=== PATIENT | female | born 1995 | race Caucasian/White ===

== ENCOUNTER 2018-11-07 23:25 | Emergency (ER) | payer MEDICAID, OTHER ==
[~2018-11-07] VITALS: Ht 157.5 cm; Wt 83.5 kg
[~2018-11-07 23:25] MED LIST: IBUP-1542 PO
[2018-11-07 23:31] VITALS: Ht 157.5 cm; Wt 83.5 kg
--- NOTE | 2018-11-08 00:30 | ERD ---
ER Documentation Chief Complaint Chief Complaint abd/back pain x 2 days HPI The patient is a 23-year-old female, presenting to the ER because of lower back pain and left-sided abdominal pain for 2 days, associated with sore throat, d enies nasal congestion, cough, neck pain, chest pain, dyspnea, vomiting, dizzy, diarrhea. She does not smoke nor drink Past medical history: None Past surgical history: Appendectomy ROS All systems reviewed and are negative except as per history of present illness. Medications Home Meds Active Scripts Ibuprofen* (Motrin*) 600 Mg Tab, 600 MG PO Q6H PRN for PAIN AND OR ELEVATED TEMP, #30 TAB Prov:TRISTAN ELLINGTON MD 11/08/18 Cephalexin* (Keflex*) 500 Mg Capsule, 500 MG PO Q6, #40 CAP Prov:TRISTAN ELLINGTON MD 11/08/18 Ibuprofen* (Motrin*) 600 Mg Tab, 600 MG PO Q6, #20 TAB Prov:SARA YO PA-C 03/23/15 Allergies Allergies: Coded Allergies: No Known Allergy (Unverified , 07/28/14) PMhx/Soc History of Surgery: No Anesthesia Reaction: No Hx Neurological Disorder: No Hx Respiratory Disorders: No Hx Cardiac Disorders: No Hx Psychiatric Problems: No Hx Miscellaneous Medical Probl: No Hx Alcohol Use: No Hx Substance Use: No Hx Tobacco Use: No Physical Exam Vitals Vital Signs Date Temp Pulse Resp B/P (MAP) Pulse Ox O2 O2 Flow FiO2 Time Delivery Rate 11/08/18 89 14 112/69 99 Room Air 03:36 (83) 11/08/18 99.3 99 16 107/70 98 Room Air 01:12 (82) 11/07/18 102.4 100 20 122/64 98 23:31 (83) Physical Exam Const: No acute distress. Head: Atraumatic. Eyes: Normal Conjunctiva. ENT: Normal External Ears, Nose and Mouth. Neck: Full range of motion. No meningismus. Resp: Clear to auscultation bilaterally. Cardio: Regular rate and rhythm. Abd: Soft, non distended, normal bowel sounds, obese, diffuse abdomi nal tenderness, mild bilateral CVA tenderness Skin: No petechiae or rashes. Back: No midline or flank tenderness. Ext: No cyanosis, or edema. Neur: Awake and alert. No focal deficit Psych: Normal Mood and Affect. Result Diagram: 11/08/18 0059 11/08/18 0059 Results 24 hrs Laboratory Tests Test 11/08/18 00:36 11/08/18 00:38 11/08/18 00:59 11/08/18 02:30 Bedside Urine pH 6.0 (LAB) Bedside Urine Trace Protein (LAB) Bedside Urine Negative Glucose (UA) Bedside Urine 2+ Ketones (LAB) Bedside Urine 2+ Blood Bedside Urine Negative Nitrite (LAB) Bedside Urine 1+ Leukocyte Esteras e (L POC Beta HCG, NEGATIVE Qualitative White Blood Count 9.4 10^3/ul Red Blood Count 5.02 10^6/ul Hemoglobin 13.9 g/dl Hematocrit 43.3 % Mean Corpuscular 86.3 fl Volume Mean Corpuscular 27.7 pg Hemoglobin Mean Corpuscular 32.1 g/dl Hemoglobin Concen t Red Cell 13.8 % Distribution Width Platelet Count 257 10^3/UL Mean Platelet 10.8 fl Volume Immature 0.300 % Granulocytes % Neutrophils % 86.3 % Lymphocytes % 7.4 % Monocytes % 5.2 % Eosinophils % 0.6 % Basophils % 0.2 % Nucleated Red 0.0 /100WBC Blood Cells % Immature 0.030 10^3/ul Granulocytes # Neutrophils # 8.1 10^3/ul Lymphocytes # 0.7 10^3/ul Monocytes # 0.5 10^3/ul Eosinophils # 0.1 10^3/ul Basophils # 0.0 10^3/ul Nucleated Red 0.0 10^3/ul Blood Cells # Prothrombin Time 13.6 Sec Prothrombin Time 1.1 Ratio INR International 1.03 Normalized Ratio Activated 33.4 Sec Partial Thrombopl ast Time Sodium Level 141 mmol/L Potassium Level 3.9 mmol/L Chloride Level 100 mmol/L Carbon Dioxide 25 mmol/L Level Anion Gap 16 Blood Urea 16 mg/dl Nitrogen Creatinine 0.67 mg/dl Est Glomerular > 60 mL/min Filtrat Rate mL/min Glucose Level 102 mg/dl Lactic Acid Level 1.1 mmol/L Calcium Level 9.9 mg/dl Total Bilirubin 0.4 mg/dl Direct Bilirubin 0.00 mg/dl Indirect 0.4 mg/dl Bilirubin Aspartate Amino 24 IU/L Transf (AST/SGOT) Alanine 13 IU/L Aminotransferase (ALT/SGPT) Alkaline 84 IU/L Phosphatase Troponin I < 0.012 ng/ml Total Protein 9.0 g/dl Albumin 5.2 g/dl Globulin 3.80 g/dl Albumin/Globulin 1.36 Ratio Urine Color YELLOW Urine Clarity SLIGHTLY CLOUDY Urine pH 6.0 Urine Specific 1.016 Sadler Urine Ketones 1+ mg/dL Urine Nitrite NEGATIVE mg/dL Urine Bilirubin NEGATIVE mg/dL Urine NEGATIVE mg/dL Urobilinogen Urine Leukocyte 2+ Perez/ul Esterase Urine Microscopic 2 /HPF RBC Urine Microscopic 4 /HPF WBC Urine Squamous FEW /HPF Epithelial Cells Urine Hemoglobin 2+ mg/dL Urine Glucose NEGATIVE mg/dL Urine Total NEGATIVE mg/dl Protein Current Medications Medications Dose Sig/Regina Start Time Status Last (Trade) Ordered Route PRN Stop Time Admin Dose Reason Admin 650 mg ONCE STAT 11/08/18 DC 11/08/18 Acetaminophen PO 00:39 02:32 (Tylenol 11/08/18 00:42 Tab) Sodium 1,500 ml BOLUS OVER 2 11/08/18 DC Chloride HOURS STAT 00:39 (NS) IV* 11/08/18 00:42 Ceftriaxone 50 ml @ ONCE ONCE 11/08/18 DC 11/08/18 Sodium 100 mls/hr IVPB 02:30 02:32 11/08/18 02:59 Procedures/[place] [id number] Radiology Main Line: [phone] DIAGNOSTIC IMAGING REPORT Patient: SURESH GAITAN : 1995 Age: 23 Sex: F MR #: [id number] DOS: 11/08/18 0039 Ordering MD: TRISTAN ELLINGTON MD Location: E/R Room/Bed: PROCEDURE: CT Abdomen and pelvis without contrast. CLINICAL INDICATION: Abdominal pain. TECHNIQUE: CT scan of the abdomen and pelvis was performed on a multi- detector high-resolution CT scanner. Contiguous axial images were obtained from the lung bases to the ischial tuberosities without intravenous contrast. Coronal and sagittal reformatted images were also obtained. Images were reviewed on the PACS workstation. DICOM images are available. One or more of the following dose reduction techniques were used: - Automated exposure control. - Adjustment of the mA and/or kV according to patient size. - Use of iterative reconstruction technique. Exam CTD/vol = 17.31 mGy. Total exam DLP = 982.16 mGy-cm. COMPARISON: 04/22/2015. FINDINGS: Evaluation of the lung bases demonstrates minimal bibasilar atelectasis. Abdomen: The liver is normal in size. There is no focal mass or dilatation of the biliary tree. The gallbladder is not distended. The spleen, pancreas and bilateral adrenal glands are within normal limits. Bilateral kidneys are normal in size with no contour deforming mass identified. There are multiple 1-2 mm renal calculi bilaterally. There is no radiopaque ureteral calculus identified. There is no hydronephrosis or hydroureter. There is no retroperitoneal adenopathy. The abdominal aorta is of normal caliber. There is no bowel obstruction or free air. The appendix is not visualized. There is no diverticulosis or diverticulitis. There is no ascites. Pelvis: The bladder demonstrates mild wall thickening. The uterus and adnexa are within normal limits. There is no significant pelvic adenopathy or free fluid. Evaluation of the osseous structures demonstrates no suspicious lytic or blastic lesion. IMPRESSION: Bilateral nonobstructing renal calculi. Mild bladder wall thickening could suggest cystitis. Clinical correlation is needed. Otherwise no acute abnormality identified within the abdomen and pelvis. .Toi Oates MD, MD Date Time Electronically viewed and signed by .Toi Oates MD, MD on 11/08/2018 02:38 .T/ CC: TRISTAN ELLINGTON MD [id number] [place] [id number] Radiology Main Line: [phone] DIAGNOSTIC IMAGING REPORT Patient: SURESH GAITAN : 1995 Age: 23 Sex: F MR #: [id number] DOS: 11/08/18 0039 Ordering MD: TRISTAN ELLINGTON MD Location: E/R Room/Bed: PROCEDURE: Chest. CLINICAL INDICATION: Chest pain. TECHNIQUE: Single frontal view of the chest was obtained. COMPARISON: None. FINDINGS: The cardiac silhouette is within normal limits. The aortic arch is unremarkable. There is no focal consolidation, vascular congestion or pleural effusion. There is no pneumothorax. IMPRESSION: No evidence for active cardiopulmonary disease. .Toi Oates MD, MD Date Time Electronically viewed and signed by .Toi Oates MD, MD on 11/08/2018 02:25 .T/ CC: TRISTAN ELLINGTON MD [id number] EKG: Read by emergency physician Rate/Rhythm: Sinus tachycardia 104 beats/min QRS, ST, T-waves: No ST elevation, no T inversion PVC, RWA Impression: Abnormal EKG MEDICAL MAKING DECISION: The patient is a 23-year-old female, presenting with acute pyelonephritis, acute viral syndrome. She was treated with Tylenol for fever, ideal body weight IV fluid for acute clinical dehydration, Rocephin 1 g IV for acute pyelonephritis with good response. She is stable for outpatient follow-up The differential diagnoses considered include but are not limited to cholelithiasis, cholecystitis, choledocholithiasis, cholangitis, pancreatitis, hepatitis, gastritis, peptic ulcer disease, gastric ulcer, appendicitis, cystitis, diverticulitis, partial small bowel obstruction. Departure Diagnosis: Primary Impression: Pyelonephritis Additional Impression: Dehydration Condition: Good Comments She was discharged with Keflex and Motrin I discussed the findings with the patient. I advised the patient to follow-up with the primary physician in about 2-3 days, sooner if needed and return if any concern. Disclaimer: Inadvertent spelling and grammatical errors are likely due to EHR/dictation software use and do not reflect on the overall quality of patient care. Also, please note that the electronic time recorded on this note does not necessarily reflect the actual time of the patient encounter. TRISTAN ELLINGTON MD Nov 08, 2018 00:30
[2018-11-08] MEDS ORDERED: ACETAMINOPHEN 325 MG TAB PO STA (00:39)
[2018-11-08] MEDS ORDERED: SODIUM CHLORIDE 0.9% 1L BAG IV* STA (00:39)
[2018-11-08] MEDS ORDERED: CEFTRIAXONE 1 GM/50 ML (PMX) 50 ML IVPB ONE (02:30)
[2018-11-08] MEDS ORDERED: IBUP-1542 PO (04:09)
[2018-11-08] MEDS ORDERED: CEPH-443 PO (04:09)
[2018-11-08 04:11] VITALS: BP 95/70; PULSE 92; RESP 18
== END 2018-11-08 06:03 | disposition home or self-care (01) ==
LOC: E/R 23:25
DX: N12 Tubulo-interstitial nephritis, not specified as acute or chronic (principal); E86.0 Dehydration
CPT/HCPCS: 71045; 74176; 80053; 81001; 81025; 83605; 84484; 85025; 85610; 85730; 87040; 87086; 87400; 93005; J0696; J7030; Z7610; 36415; 81003; 96365